=== PATIENT | female | born 1945 | race Caucasian/White ===

== ENCOUNTER → 2024-03-07 | Outpatient (CLI) | payer MEDICARE, BC, SELFPAY ==
--- NOTE | 2024-03-07 13:35 | XR_ITS ---
Examination: Bone densitometry Date and time of exam:March 07, 2024 1320 hours INDICATIONS: Hysterectomy age 48 calcium and vitamin D 6 years Technique: Lumbar spine and hip total bone mineralization values of an calculated. Peak reference and age match control results have been displayed. Findings: Lumbar spine total bone mineralization is1.110 gm/cm2. This is 0.6 standard deviations above peak reference. This is 3.1 standard deviations above age-matched controls. Hip total bone mineralization is 0.965 gm/cm2 This is 0.2 standard deviations above peak reference. This is 2.1 standard deviations above age-matched controls Impression: There is normal mineralization based on lumbar spine measurements. There is normal mineralization based on hip measurements Lumbar mineralization is decreased 3.5% compared with April 11, 2015. Hip mineralization is decreased 12.2% compared with April 11, 2015
== END | disposition home or self-care (01) ==
PROVIDERS: PCP Physician Assistant Medical; Referring Provider Physician Assistant Medical; Visit Provider Physician Assistant Medical
DX: M81.0 Age-related osteoporosis without current pathological fracture (principal)
CPT/HCPCS: 77080